=== PATIENT | male | born 1990 | race Caucasian/White ===

== ENCOUNTER 2016-05-20 13:49 | Emergency (ER) | payer OTHER ==
--- NOTE | 2016-05-20 14:30 | XR ---
Right ankle HISTORY: Trauma and pain 3 views of the right ankle No comparisons There is a flake-like calcification distal to the medial malleolus. Soft tissue swelling is present. Alignment, bone mineralization and joint spaces are maintained. No evident dislocation. Enthesophyte present at the insertion of the Achilles tendon. There may be calcific tendinitis. Ossific density di stal to the fibula laterally appears well-corticated and may be due to remote injury. IMPRESSION: Findings suggest avulsion injury at the medial malleolus, correlate for point tenderness.
--- NOTE | 2016-05-20 14:31 | ED ---
General Adult HPI - General Chief complaint: Extremity Injury, Lower Stated complaint: ankle pain Time Seen by Provider: 05/20/16 13:58 Source: RN notes reviewed - History of Present Illness Initial comments: Patient 26-year-old male who presents emergency room today with a chief complaint of an injury to the right ankle. Patient does admit that he was at a customer's house going to walk down some stairs and right ankle. Patient admits that he fell down about 5-7 steps rolling the right ankle. He does admit to pain locally to the medial aspect. He denies any other complaints. Patient was given morphine by EMS which didn't improve his symptoms. Patient denies any recent fever, chills, shortness of breath, chest pain, back pain, abdominal pain, nausea or vomiting, numbness or tingling, dysuria or hematuria, constipation or diarrhea, headaches or visual changes, or any other complaints. - Related Data Home Medications Medication Instructions Recorded Confirmed Ibuprofen [Motrin] 800 mg PO Q8HR PRN 05/20/16 05/20/16 Previous Rx's Medication Instructions Recorded Hydrocodone/Acetaminophen [[place] 1 each PO Q6HR PRN #20 tab 05/20/16 5-325] Allergies Allergy/AdvReac Type Severity Reaction Status Date / Time sulfamethoxazole AdvReac Rash/Hives Verified 05/20/16 14:08 [From Bactrim] trimethoprim [From Bactrim] AdvReac Rash/Hives Verified 05/20/16 14:08 Review of Systems ROS Statement: Those systems with pertinent positive or pertinent negative responses have been documented in the HPI. ROS Other: All systems not noted in ROS Statement are negative. General Exam - General Exam Comments Initial Comments: General: The patient is awake and alert, in no distress, and does not appear acutely ill. Neck: The neck is supple, there is no tenderness or JVD. Cardiovascular: There is a regular rate and rhythm. No murmur, rub or gallop is appreciated. Respiratory: Lungs are clear to auscultation, respirations are non-labored, breath sounds are equal. No wheezes, stridor, rales, or rhonchi. Musculoskeletal: Normal appearance of the right ankle obvious deformity. Shows good range of motion of the toes and right knee. Patient has no bony tenderness in the right knee proximal fibula. Patient does have tenderness over the medial malleolus. Sensations are intact pulses equal bilaterally 2+. Neurological: A&O x 3. CN II-XII intact, There are no obvious motor or sensory deficits. Coordination appears grossly intact. Speech is normal. Skin: Skin is warm and dry and no rashes or lesions are noted. Psychiatric: Normal mood and affect. Course Vital Signs 05/20/16 13:50 Temperature 98.5 F Pulse Rate 97 Respiratory 20 Rate Blood Pressure 131/72 O2 Sat by Pulse 97 Oximetry Medical Decision Making - Medical Decision Making Patient's x-rays reviewed does show a avulsion fracture of the medial malleolus. Results were discussed with patient. Patient has been splinted in a posterior short leg OCL. Neurovascular rechecked and intact. Patient given crutches to go home with. Patient advised follow-up with orthopedics over the next 2 days or Workmen's Comp. Patient is advised to return to emergency room if any symptoms increase or worsen or for any other concerns. Disposition Clinical Impression: Ankle fracture Disposition: HOME SELF-CARE Condition: Good Instructions: Ankle Fracture (ED) Additional Instructions: Please leave splinted in place and follow-up with orthopedics over the next 2 days. Please continue to ice elevate. Please use crutches with nonweightbearing. Please return to emergency room if the symptoms increase or worsen or for any other concerns. Prescriptions: Hydrocodone/Acetaminophen [[place] 5-325] 1 each PO Q6HR PRN #20 tab PRN Reason: Pain Referrals: Nonstaff,Physician [Primary Care Provider] - 1-2 days Cordell Islas MD [Medical Doctor] - 1-2 days Time of Disposition: 15:01
[2016-05-20] MEDS ORDERED: HYDROcodone/APAP 5-325MG 1 EACH TAB PO STA (15:01)
[2016-05-20 15:36] VITALS: BP 121/63; PULSE 91; RESP 18; TEMP 97.9
== END 2016-05-20 15:36 | disposition home or self-care (01) ==
LOC: EC 13:49
DX: S82.51XA Displaced fracture of medial malleolus of right tibia, initial encounter for closed fracture (principal); W10.9XXA Fall (on) (from) unspecified stairs and steps, initial encounter; Y93.01 Activity, walking, marching and hiking; Y92.009 Unspecified place in unspecified non-institutional (private) residence as the place of occurrence of the external cause; Z88.2 Allergy status to sulfonamides
CPT/HCPCS: 29515; 99283